=== PATIENT | female | born 1970 | race American Indian/Alaskan Native ===

== ENCOUNTER 2017-11-07 15:53 | Emergency (ER) | payer MEDICAID, OTHER ==
[2017-11-07 17:19] VITALS: BP 158/97
--- NOTE | 2017-11-07 18:38 | XRay Report ---
FINAL REPORT EXAM: XR FOREARM RT HISTORY: post fall arm pain TECHNIQUE: PRIORS: None. FINDINGS: No fracture is identified. The joint spaces are within normal limits. No focal bony lesion identified. No radiopaque foreign body seen. IMPRESSION: Negative no acute abnormality.
[2017-11-07 19:51] LABS: Basophils # (Auto) 0.1 K/mm3 (0.0-0.1); Basophils % (Auto) 0.4 % (0.0-1.8); Eosinophils % (Auto) 0.2 % (0.0-4.3); Hemoglobin 12.1 gm/dl (10.1-14.3); Lymphocytes # (Auto) 1.2 K/mm3 (1.2-5.4); Lymphocytes % (Auto) 6.4 % (13.4-35.0); Mean Corpuscular HGB Conc 32 % (30-34); Mean Corpuscular Volume 80 fl (79-97); Monocytes # (Auto) 0.8 K/mm3 (0.0-0.8); Monocytes % (Auto) 4.1 % (0.0-7.3); Red Blood Count 4.74 M/mm3 (3.65-5.03); Red Cell Distribution Width 15.7 % (13.2-15.2)
[2017-11-07 19:52] LABS: Mean Corpuscular Hemoglobin 26 pg (28-32)
[2017-11-07 20:31] LABS: Platelet Count 89 K/mm3 (140-440)
[2017-11-07 21:35] LABS: BUN/Creatinine Ratio 13; Blood Urea Nitrogen 8 mg/dL (7-17); Calcium 9.2 mg/dL (8.4-10.2); Hemolysis Index 145
== END 2017-11-08 | disposition left against medical advice (07) ==
LOC: ED 15:53
DX: R56.9 Unspecified convulsions (principal); Z53.21 Procedure and treatment not carried out due to patient leaving prior to being seen by health care provider
CPT/HCPCS: 36415; 73090; 80048; 85025; G0480; 80320

== ENCOUNTER 2021-04-02 17:25 | Emergency (ER) | payer SELFPAY ==
[2021-04-02] MEDS ORDERED: levETIRAcetam 500 MG TAB PO ONE (18:34)
[2021-04-02 18:40] LABS: Basophils % (Auto) 0.6 % (0.0-1.8); Eosinophils # (Auto) 0.1 K/mm3 (0.0-0.4); Eosinophils % (Auto) 0.9 % (0.0-4.3); Hematocrit 39.5 % (30.3-42.9); Hemoglobin 12.3 gm/dl (10.1-14.3); Lymphocytes # (Auto) 1.4 K/mm3 (1.2-5.4); Lymphocytes % (Auto) 16.4 % (13.4-35.0); Mean Corpuscular HGB Conc 31 % (30-34); Mean Corpuscular Volume 83 fl (79-97); Monocytes # (Auto) 0.7 K/mm3 (0.0-0.8); Monocytes % (Auto) 8.1 % (0.0-7.3); Platelet Count 158 K/mm3 (140-440); Red Blood Count 4.74 M/mm3 (3.65-5.03); Red Cell Distribution Width 15.8 % (13.2-15.2)
[2021-04-02 18:58] LABS: Alanine Aminotransferase 9 units/L (7-56); Albumin 4.2 g/dL (3.9-5); BUN/Creatinine Ratio 16; Blood Urea Nitrogen 13 mg/dL (7-17); Calcium 9.5 mg/dL (8.4-10.2); Hemolysis Index 5
[2021-04-02 18:59] LABS: Bilirubin,Direct < 0.2 mg/dL (0-0.2)
[2021-04-02 20:25] LABS: Bacteria,Urine 1+ /HPF (Negative); Bilirubin,Urine NEG (Negative); Blood,Urine NEG (Negative); Color,Urine Yellow (Yellow); Mucus,Urine FEW /HPF; Urobilinogen,Urine < 2.0 mg/dL (<2.0)
[2021-04-02 22:06] VITALS: BP 136/94
== END 2021-04-02 21:45 | disposition home or self-care (01) ==
LOC: ED 17:25
DX: R56.9 Unspecified convulsions (principal); J45.909 Unspecified asthma, uncomplicated; Z91.013 Allergy to seafood; Z79.899 Other long term (current) drug therapy; Z98.890 Other specified postprocedural states
CPT/HCPCS: 36415; 80048; 80076; 81001; 83735; 84703; 85025; 99283

== ENCOUNTER 2021-09-08 17:59 | Emergency (ER) | payer OTHER ==
[2021-09-08] MEDS ORDERED: ALTEPLASE 2 MG INJ ONE (18:07)
[2021-09-08] MEDS ORDERED: ALTEPLASE 100 MG INJ KIT ONE ×2 (18:11→18:12)
--- NOTE | 2021-09-08 18:42 | Emergency Department Report ---
ED CPR HPI - General Stated Complaint: CARDIAC ARREST Time Seen by Provider: 09/08/21 18:41 - History of Present Illness Initial Comments: Patient was brought in his cardiac arrest. She was at [facility] ([place] She complaining of trouble breathing, started gasping for breath, and then had a witnessed cardiac arrest. She did receive CPR. EMS had been called. They found the patient to be unresponsive, asystolic, and apneic. They did intubate the patient. They placed an IO. They subsequently gave multiple rounds of medication and continued CPR during transport. At some point, the left IO became dislodged. They continued with treatment. Upon arrival, they state that the patient collapsed. There was no trauma. Their downtime had been approximately 35 minutes upon arrival. They had had no return of spontaneous circulation. - Related Data Previous Rx's Medication Instructions Recorded Last Taken Type Clindamycin [Clindamycin CAP] 300 mg PO Q8H 10 Days cap 08/08/15 Unknown Rx Ibuprofen [Motrin 600 MG tab] 600 mg PO Q8H PRN #15 tablet 08/08/15 Unknown Rx traMADoL [Ultram 50 MG tab] 50 mg PO Q6HR PRN #15 tablet 08/08/15 Unknown Rx Allergies Allergy/AdvReac Type Severity Reaction Status Date / Time shellfish derived Allergy Shortness Verified 02/25/15 03:20 of Breath ED Review of Systems ROS: Stated complaint: CARDIAC ARREST Other details as noted in HPI Comment: Unobtainable due to pts medical conditions (Cardiac arrest) ED Past Medical Hx - Past Medical History Hx Hypertension: Yes Hx Seizures: Yes (2 previous seizures last year, no f/u) Hx Asthma: Yes Additional medical history: cannot be obtained for the patient secondary to cardiac arrest. Based on old records, there was some note of DVT - Surgical History Additional Surgical History: CS X 1 - Social History Smoking Status: Never Smoker Substance Use Type: None, Other ( cannot be obtained from patient secondary to cardiac arrest) - Medications Home Medications: Home Medications Medication Instructions Recorded Confirmed Last Taken Type Clindamycin [Clindamycin CAP] 300 mg PO Q8H 10 Days cap 08/08/15 Unknown Rx Ibuprofen [Motrin 600 MG tab] 600 mg PO Q8H PRN #15 tablet 08/08/15 Unknown Rx traMADoL [Ultram 50 MG tab] 50 mg PO Q6HR PRN #15 tablet 08/08/15 Unknown Rx ED Physical Exam - General Limitations: Physical Limitation ( cardiac arrest) General appearance: obese, other ( patient was unresponsive. CPR was in progress) - Head Head exam: Present: atraumatic, normocephalic - Eye Eye exam: Present: other ( pupils are 4 mm and fixed with a conjugate gaze) - ENT ENT exam: Present: other ( endotracheal tube in place) - Neck Neck exam: Present: other ( trachea midline) - Respiratory Respiratory exam: Present: rhonchi ( with bag ventilation) - Cardiovascular Cardiovascular Exam: Present: other ( pulseless) - GI/Abdominal GI/Abdominal exam: Present: soft - Extremities Exam Extremities exam: Present: other ( extremities are cool to touch. There is a walking boot on the right lower extremity) - Neurological Exam Neurological exam: Present: other ( unresponsive) - Psychiatric Psychiatric exam: Present: other ( unresponsive) - Skin Skin exam: Present: cyanosis, other ( cool) ED Course - Reevaluation(s) Reevaluation #1: 09/08/21 19:37 patient underwent multiple doses of resuscitative efforts with epi, atropine, bicarbonate and calcium. Ultimately, due to her presentation it was concerning that she could've had a massive PE so TPA was started. After approximately 40 more minutes of continued CPR, there was no return of spontaneous circulation that was sustained. Bedside cardiac ultrasound was completed which was consistent with asystole. Patient was pronounced at 1835. She did have a transient episode of ventricular fibrillation based on rhythm strip. She was defibrillated at 200 J. She returned to PEA. 09/08/21 19:50 - Procedure Description Procedures done: Procedure note: Bedside ultrasound. Location: Cardiac arrest. Patient was supine on the bed. CPR was temporarily held. Bedside cardiac ultrasound was completed by myself. Curvilinear probe was utilized. There was no appreciable cardiac activity. There was no pericardial effusion noted. There was no wall motion noted. Patient tolerated the procedure without difficulty. There are no complications. ED Medical Decision Making - Lab Data Rhythm strip #1: Asystole. Monitor observed for 10 seconds. Rhythm strip #2: Asystole. Monitor observed for 10 seconds. Rhythm strip #3: PEA. Monitor was observed for 10 seconds. Rhythm strip #4: Ventricular fibrillation. Monitor was observed for 10 seconds. Rhythm strip #5: PEA. Monitor observed for 10 seconds. Rhythm strip #6: PEA. Monitor observed for 10 seconds. - Medical Decision Making Patient presented in cardiac arrest. Based on her presentation of body habitus, complaining of respiratory distress, having an Ortho boot on the right leg, and a remote history of DVT, it was felt that she likely had a massive pulmonary embolism. Thrombolytics were attempted. These were unsuccessful. Despite ongoing CPR and resuscitative efforts, we were unable to achieve return of spontaneous circulation. Patient was ultimately pronounced. Family was notified. They were not present at the time of pronouncement. Critical Care Time: No Critical care attestation.: If time is entered above; I have spent that time in minutes in the direct care of this critically ill patient, excluding procedure time. Critical Care Time: There was no critical care time. Patient had continuous CPR time of 42 minutes. ED Disposition Clinical Impression: Cardiac arrest Disposition: 20 Is pt being admited?: No Condition: Stable Referrals: PRIMARY CARE, [Primary Care Provider] - 3-5 Days
[2021-09-08] MEDS ORDERED: EPINEPHrine 1 MG/1 ML 8 MG in SODIUM CHLORIDE 0.9% 250ML 242 ML IV ONE (19:00)
[2021-09-08] MEDS ORDERED: EPINEPHrine 1 MG/10 ML SYRINGE ONE (23:30)
[2021-09-08] MEDS ORDERED: DEXTROSE 50% IN WATER (25GM) 50 ML SYRINGE IV ONE (23:30)
[2021-09-08] MEDS ORDERED: SODIUM BICARB 8.4% 50 MEQ/50 ML SYRINGE IV ONE (23:30)
[2021-09-08] MEDS ORDERED: CALCIUM CHLORIDE 1,000 MG/10 ML SYRINGE IV ONE (23:30)
[2021-09-08] MEDS ORDERED: ATROPINE 0.1% (1 MG/10 ML) CARDIAC SYRINGE ONE (23:30)
[2021-09-10] MEDS ORDERED: ALTEPLASE 2 MG INJ IV ONE (12:31)
== END 2021-09-09 01:01 ==
LOC: ED 17:59
DX: I46.9 Cardiac arrest, cause unspecified (principal); I10 Essential (primary) hypertension; J45.909 Unspecified asthma, uncomplicated
CPT/HCPCS: 92950; 99285; J0171; J0461; J2997; J3490; J7050